=== PATIENT | female | born 1985 | race American Indian/Alaskan Native ===

== ENCOUNTER 2017-09-16 22:26 | Observation (INO) | payer BC, OTHER ==
[2017-09-16 22:26] VITALS: BMI 27.4
[2017-09-16] MEDS ORDERED: Sodium Chloride 0.9% 1,000 ML IV ONE (23:09)
[2017-09-16] MEDS ORDERED: Sodium Chloride 0.9% 1,000 ML ONE (23:16)
[2017-09-16 23:17] LABS: BASO % 0.2 % (0.0-2.0); EOS # 0.1 K/uL (0.0-0.7); EOS % 0.8 % (0.0-4.0); HEMATOCRIT 30.4 % (34.0-47.0); LYMPH # 2.6 K/uL (1.0-4.3); LYMPH % 17.7 % (20.0-40.0); MEAN CORPUSCULAR HEMOGLOBIN 31.1 pg (27.0-31.0); MEAN PLATELET VOLUME 6.9 fL (7.2-11.7); MONO # 0.5 K/uL (0.0-0.8); MONO % 3.5 % (0.0-10.0); RED CELL DISTRIBUTION WIDTH 12.6 % (11.5-14.5); WHITE BLOOD COUNT 14.6 K/uL (4.8-10.8)
[2017-09-16 23:21] LABS: MEAN CELL VOLUME 91.4 fL (81.0-99.0)
[2017-09-16 23:26] LABS: CHLORIDE 102 mmol/L (98-107); POTASSIUM 3.3 mmol/L (3.6-5.2); SODIUM 135 mmol/L (132-148)
[2017-09-16 23:28] LABS: GFR AFRICAN-AMERICAN > 60
[2017-09-16 23:29] LABS: ALKALINE PHOSPHATASE 40 U/L (38-126); ALT/SGPT 33 U/L (9-52); AST/SGOT 19 U/L (14-36); BILIRUBIN,TOTAL 0.6 mg/dL (0.2-1.3); BLOOD UREA NITROGEN 9 mg/dL (7-17); CALCIUM 9.1 mg/dl (8.6-10.4); CARBON DIOXIDE 23 mmol/L (22-30); GLUCOSE,RANDOM 94 mg/dL (65-105); TOTAL PROTEIN 6.9 g/dL (6.3-8.3)
--- NOTE | 2017-09-17 00:40 | US ---
EXAM: US First Trimester, Transabdominal CLINICAL HISTORY: 32 years old, female; Pain; complicated by abdominal or pelvic pain; Lower; First trimester; Gestational age or lmp: 8-10-17; ; Patient HX: Beta 8435.40. Prior 09-14-17 @ [facility]; Additional info: ? Passed poc, @ 8 wks/5 days ( demise) TECHNIQUE: Real-time transabdominal obstetrical ultrasound of the maternal pelvis and a first trimester with image documentation. COMPARISON: No relevant prior studies available. FINDINGS: Gestation: Irregular gestational sac extending into lower uterine segment. No yolk sac. pole. No heartbeat detected. [place]-rump length of 2.1 cm, correlating with gestational age of 8 weeks 5 days. Uterus/cervix: Shortened cervix. Cervical length = 1.4 cm. Ovaries: RIGHT ovary: Normal. LEFT ovary: Probable 1.8 x 1.7 x 1.8 cm corpus luteal cyst. No adnexal masses. Free fluid: No significant free fluid. IMPRESSION: 1. Findings compatible with demise. 2. Incidental/non-acute findings are described above. EXAM: US , Transvaginal CLINICAL HISTORY: 32 years old, female; Pain; complicated by abdominal or pelvic pain; Lower; First trimester; Gestational age or lmp: 8-10-17; ; Patient HX: Beta 2485.40. Prior 09-14-17 @ [facility]; Additional info: ? Passed poc, @ 8 wks/5 days ( demise) TECHNIQUE: Real-time transvaginal obstetrical ultrasound of the maternal pelvis and a first trimester with image documentation. Transvaginal imaging was used for better evaluation of the fetus and adnexa. COMPARISON: No relevant prior studies available. FINDINGS: Gestation: Irregular gestational sac extending into lower uterine segment. No yolk sac. pole. No heartbeat detected. [place]-rump length of 2.1 cm, correlating with gestational age of 8 weeks 5 days. Uterus/cervix: Shortened cervix. Cervical length = 1.4 cm. Ovaries: RIGHT ovary: Normal. LEFT ovary: Probable 1.8 x 1.7 x 1.8 cm corpus luteal cyst. No adnexal masses. Free fluid: No significant free fluid.
--- NOTE | 2017-09-17 01:35 | C.PDOC ---
History Of Present Illness 32 y/o female presents to ED with complaints of vaginal bleeding for 6 hours. Patient reports bleeding is in cloths and was seen at [facility] 2 days ago. Patient was diagnosed with demise and was instructed to follow up with Dr Angelica House. Patient states she took 6 percocet today for pain. No other complaints at this time. Time Seen by Provider: 09/16/17 23:00 Chief Complaint (Nursing): Female Genitourinary History Per: Patient History/Exam Limitations: no limitations Onset/Duration Of Symptoms: Days Current Symptoms Are (Timing): Still Present Past Medical History Reviewed: Historical Data, Nursing Documentation, Vital Signs Vital Signs: Last Vital Signs Temp 97.9 F 09/16/17 22:28 Pulse 88 09/16/17 22:28 Resp 20 09/16/17 22:28 BP 132/56 L 09/16/17 22:28 Pulse Ox 100 09/17/17 01:45 - Medical History PMH: Anxiety, Depression Surgical History: (x1) - [facility] Procedures EXCISION OF ABDOMEN SKIN, EXTERNAL APPROACH (03/24/16) EXTRACTION OF POC, LOW CERVICAL, OPEN APPROACH (03/24/16) INJECT/INFUSE ELECTROLYT (01/17/14) INJECT/INFUSE NEC (01/17/14) Family History: States: No Known Family Hx - Social History Hx Tobacco Use: Yes Hx Alcohol Use: No Hx Substance Use: No - Immunization History Hx Tetanus Toxoid Vaccination: No Hx Influenza Vaccination: No Hx Pneumococcal Vaccination: No Review Of Systems Constitutional: Negative for: Fever, Chills Respiratory: Negative for: Shortness of Breath Gastrointestinal: Negative for: Nausea, Vomiting Genitourinary: Positive for: Vaginal Bleeding. Negative for: Dysuria Skin: Negative for: Rash Physical Exam - Physical Exam Appears: Non-toxic, Other (Dramatic) Skin: Warm, Dry, No Rash Head: Atraumatic, Normacephalic Oral Mucosa: Moist Neck: Normal ROM, Supple Chest: Symmetrical Cardiovascular: Rhythm Regular Respiratory: Normal Breath Sounds, No Rales, No Rhonchi, No Wheezing Gastrointestinal/Abdominal: Soft, No Tenderness, No Guarding, No Rebound Back: No CVA Tenderness Extremity: Normal ROM, Capillary Refill (<2 seconds) Neurological/Psych: Oriented x3 ED Course And Treatment - Laboratory Results Result Diagrams: 09/16/17 23:15 09/16/17 23:15 Lab Interpretation: Abnormal (leukocytosis c/w , Quant HCG 2485 from [id number] 2 days ago) O2 Sat by Pulse Oximetry: 100 (RA) Pulse Ox Interpretation: Normal Reevaluation Time: 01:33 Reassessment Condition: Improved - Physician Consult Information Outcome Of Conversation: 0100: d/w Dr. Simmons- [facility] [place] [facility]- percieved as miscarraige in progress, stable HGB and falling Quant, no interventions required at this time. Medical Decision Making Medical Decision Making: miscarraige in progress stable HGB anxiety and chronic pain issues [place] extensive narcotic and benzo regimen pt non-compliant with extensive instructions from [facility] only 2 days ago- encouraged to f/u @ [facility] as needed but reassured this is typical progression. at discharge pt NAD, argumentative, confrontational, poor insight, insisting on stat d/c which is NOT described in notes from [facility] d/c notes from 2 days ago. Instructed to f/u with Dr. Angelica House in AM Disposition Doctor Will See Patient In The: Office Counseled Patient/Family Regarding: Studies Performed, Diagnosis - Disposition Referrals: Arielle House MD [Staff Provider] - Disposition: HOME/ ROUTINE Disposition Time: 01:36 Condition: GOOD Additional Instructions: This is typical miscarriage discomfort No OBGYN interventions required at this time continue Motrin as needed for crampy pelvic pain Follow-up with Dr. House as instructed 2 days ago. Instructions: Spontaneous Miscarriage (ED) Forms: [facility] (Colombian) - Clinical Impression Clinical Impression: Miscarriage - Scribe Statement The provider has reviewed the documentation as recorded by the Bibiibdahlia Rodríguez All medical record entries made by the Scribe were at my direction and personally dictated by me. I have reviewed the chart and agree that the record accurately reflects my personal performance of the history, physical exam, medical decision making, and the department course for this patient. I have also personally directed, reviewed, and agree with the discharge instructions and disposition.
[2017-09-17] MEDS ORDERED: Sodium Chloride 0.9% 1,000 ML ONE (03:03)
[2017-09-17] MEDS: Sodium Chloride 0.9% 1,000 ML IV SCH ×2 (03:05→10:55)
[2017-09-17] MEDS: Morphine 4 MG/ML VIAL IV SCH ×2 (03:05→08:00)
[2017-09-17 03:28] LABS: INR 1.1
[2017-09-17 08:39] VITALS: O2SAT 100
[2017-09-17] MEDS ORDERED: Propofol 10 mg/ml Inj (20 ML) ONE (14:13)
[2017-09-17] MEDS ORDERED: Midazolam 2 MG/2 ML VIAL ONE (14:13)
[2017-09-17] MEDS ORDERED: Lactated Ringer's 1,000 ML IV ONE ×3 (14:28)
[2017-09-17] MEDS ORDERED: Oxytocin 10 Units/ml Inj ONE (14:51)
[2017-09-17] MEDS ORDERED: Doxycycline 100 mg Inj ONE (14:51)
[2017-09-17] MEDS ORDERED: HYDROmorphone 0.5 mg/0.5 ml ISec IVP PRN (15:03)
[2017-09-17] MEDS ORDERED: HYDROmorphone 0.5 mg/0.5 ml ISec ONE (15:15)
[2017-09-17 16:12] VITALS: BP 117/64; PULSE 86; RESP 13; TEMP 97.4
--- NOTE | 2017-09-18 07:26 | PCM.SURG1 ---
Surgeon's Initial Post Op Note - Surgeon's Notes Surgeon: Arielle House MD Pay Agent: none Type of Anesthesia: General Mask Pre-Operative Diagnosis: Incomplete 8 weeks Operative Findings: 8-10 week size uterus, cervix dilated 2cm with products of concpetion at cervical os, no adnedal masses, good hemostasis, urine output 30cc cler yellow urine Post-Operative Diagnosis: same as above Operation Performed: Suction Dilation and Currettage Specimen/Specimens Removed: products of conception Estimated Blood Loss: EBL {In ML}: 50 Blood Products Given: N/A Drains Used: No Drains Post-Op Condition: Good Date of Surgery/Procedure: 09/18/17 Time of Surgery/Procedure: 14:00
--- NOTE | 2017-09-18 10:27 | OP ---
PROCEDURE DATE: 09/17/2017 PREOPERATIVE DIAGNOSIS: Incomplete at 8 weeks. POSTOPERATIVE DIAGNOSIS: Incomplete at 8 weeks. OPERATIVE FINDINGS: 8 to 10-week size uterus, cervix dilated 2 cm with products of conception at cervical os. No adnexal masses. Good hemostasis. Urine output 30 mL of clear yellow urine. OPERATION PERFORMED: Suction, dilation, and curettage. SPECIMEN REMOVED: Products of conception. ESTIMATED BLOOD LOSS: 50 mL. BLOOD PRODUCTS: None. COMPLICATIONS: None. SURGEON: Arielle House MD BLIND HANGER: None. TYPE OF ANESTHESIA: General, MAC. DESCRIPTION OF PROCEDURE: The patient was taken to the operating room where she was given general anesthesia. Once found to be adequate, the patient was placed on the operating table in the dorsal supine position with legs supported using stirrups. The patient was prepped and draped in the usual sterile fashion. A time-out confirmed, correct patient and correct procedure. The patient was given preoperative prophylactic antibiotics. Bimanual exam was performed with the above-mentioned findings. A red rubber catheter was then inserted into the urethra to drain the bladder. A Turner retractor was placed in the anteroposterior fornix of the vagina. The cervix was adequately visualized. A Teale tenaculum was placed on the anterior lip of the cervix and there was moderate amounts of products of conception noted at the cervical os. The cervix was sequentially dilated until allow for the 8-mm curve suction curette into the uterine cavity, which was advanced in the fundus. The suction curette was then activated and rotated 360 degrees and Pitocin was then initiated by anesthesia. The suction curette was then advanced 3 times and rotated until majority of the products of conception were removed. Following this, the gentle curettage was done 360 degrees. Following this, the suction curette was then reinserted until all productions have been removed and air bubble was noted within the suction curette. All instruments were removed. There was a bimanual exam performed. There was good hemostasis and also a tenaculum was placed. At the end of the procedure, all needle, sponge, and instrument counts were noted and correct x2. The patient tolerated the procedure well and was transferred to the recovery room in stable condition. Arielle House MD
== END 2017-09-17 16:30 | disposition hospice, home (50) ==
LOC: C.ER 22:26 → C.4M 09-17 02:20
PROVIDERS: ADMIT Obstetrics & Gynecology; ATTEND Obstetrics & Gynecology
DX: O03.4 Incomplete spontaneous abortion without complication (principal)
CPT/HCPCS: 36415; 59812; 76805; 76817; 80053; 84702; 85025; 85610; 85730; 86850; 86900; 88305; 99285; G0378; J1170; J1885; J2210; J2250; J2704; J3010; J7040; J7120